=== PATIENT | male | born 1955 | race Caucasian/White ===

== ENCOUNTER 2016-06-13 16:24 | Emergency (ER) | payer OTHER ==
[2016-06-13 17:38] VITALS: BP 163/103
--- NOTE | 2016-06-13 19:08 | UC ---
Shoulder Pain HPI - HPI Summary HPI Summary: This is a 60 yo gentleman with hypertension and hypogonadism who presented with L upper back pain. He reports that his symptoms have been present for the last few weeks and noted to be worse after working on a large project that required a significant amount of typing. He denies numbness or tingling. He does feel that he is weak with his overhead reach. He denies recent trauma or other acute injury. He has had similar symptoms in the past and has had good results with physical therapy. He has a pending PT eval in ~10 days. He has been taking 200 mg of ibuprofen up to 6 times daily. He finds it difficult to sleep because of the pain. - History of Current Complaint Chief Complaint: UCUpperExtremity Stated Complaint: NECK,BACK AND SHOULDER PAIN Pain Intensity: 0 Pain Scale Used: 0-10 Numeric - Allergies/Home Medications Allergies/Adverse Reactions: Allergies Allergy/AdvReac Type Severity Reaction Status Date / Time No Known Allergies Allergy Verified 09/10/12 16:17 Home Medications: Home Medications Ibuprofen [Advil] 200 mg PO 06/13/16 [History] PMH/Surg Hx/FS Hx/Imm Hx Endocrine History Of: Denies: Diabetes Cardiovascular History Of: Reports: Hypertension - medication Denies: Pacemaker/ICD - Surgical History Surgical History: None Surgery Procedure, Year, and Place: wisdom teeth extracted - Family History Family History: No significant family hx - Social History Occupation: Employed Full-time Alcohol Use: Daily Substance Use Type: None Smoking Status (MU): Never Smoked Tobacco Review of Systems Constitutional: Negative Skin: Negative Eyes: Negative ENT: Negative Respiratory: Negative Cardiovascular: Negative Gastrointestinal: Negative Genitourinary: Negative Motor: Negative Neurovascular: Negative Musculoskeletal: Arthralgia, Decreased ROM Neurological: Weakness Psychological: Negative All Other Systems Reviewed And Are Negative: Yes Physical Exam Triage Information Reviewed: Yes Appearance: Well-Appearing Vital Signs: Initial Vital Signs Temp 98.4 F 06/13/16 17:33 Pulse 86 06/13/16 17:33 Resp 18 06/13/16 17:33 BP 163/103 06/13/16 17:33 Pulse Ox 97 06/13/16 17:33 Vital Signs Reviewed: Yes Musculoskeletal: Positive: Strength Limited @ - shoulder abduction, Other: - some TTP over L cervical paraspinal musculature Psychological Exam: Normal Shoulder Course/Dx - Course Assessment/Plan: Without midline tenderness or recent injury, XR is not indicated. Suggested increasing dose of NSAIDs with frequent application of heat and prn muscle relaxants. He has a pending PT appt. He was encouraged to seek further evaluation for MRI of the C Spine if weakness persists or becomes worse. - Differential Dx/Diagnosis Differential Diagnosis/HQI/PQRI: Contusion, Fracture (Closed), Rotator Cuff Injury, Sprain, Strain, Tendonitis Provider Diagnoses: 1. Cervical spine impingement Discharge - Discharge Plan Condition: Stable Disposition: HOME Prescriptions: Cyclobenzaprine (NF) 5 mg PO TID PRN #10 tab PRN Reason: muscle spasm/pain Patient Education Materials: Cervical Radiculopathy (ED) Referrals: Gianluca Moon MD [Primary Care Provider] - Additional Instructions: Activity: As tolerated Instructions: 1. Take Flexeril (cyclobenzaprine) as needed for muscle pain/relaxation 2. Use Ibuprofen (800 mg three times daily) 3. Apply heat to your neck/shoulder 4. Participate in physical therapy
== END 2016-06-13 18:37 | disposition home or self-care (01) ==
LOC: UCEAST 16:24
DX: M54.12 Radiculopathy, cervical region (principal)
CPT/HCPCS: 99212; G0463